=== PATIENT | male | born 1995 | race African-American/Black ===

== ENCOUNTER 2023-02-06 11:34 | Outpatient (CLI) | payer MEDICAID, SELFPAY | END 2023-02-06 11:35 | disposition home or self-care (01) | PROVIDERS: PCP Internal Medicine; Visit Provider Internal Medicine | DX: R20.2 Paresthesia of skin (principal) | CPT/HCPCS: 80053; 84443 ==

== ENCOUNTER 2023-02-14 22:40 | Emergency (ER) | payer MEDICAID, SELFPAY ==
[2023-02-14 22:48] VITALS: BP 135/80; PULSE 74; TEMP 36.4; O2SAT 100; BMI 22.5
--- NOTE | 2023-02-15 00:18 | ED_ITS ---
HPI - General Adult General Time Seen by Provider: 00:18 Date Seen: 02/15/23 Chief complaint: Unspecified Complaint, Adult Stated complaint: Feet are numb and hands are tingling Time Seen by Provider: 02/14/23 23:56 Source: patient and old records reviewed Mode of arrival: ambulatory Limitations: no limitations History of Present Illness HPI narrative: 27-year-old male who comes in today with 4 5 weeks of tingling in his hands and feet. He says the feet feel numb and that is sometimes difficult to walk because he feels like his legs do not work very well. Also notes tingling in his fingers with some pain in his shoulders. Pain in the low back and says from the waist down he feels ?tingling.No bowel or bladder incontinence. Says the top of his mouth feels numb as well. No difficulty swallowing or breathing. Previously seen in clinic for this and was given ?anti inflammatory? with no improvement. Related Data Previous Rx's Medication Instructions Recorded naproxen 500 mg tablet (Naprosyn) 500 mg PO BID Inflamation #30 tabs 02/08/23 Allergies Allergy/AdvReac Type Severity Reaction Status Date / Time No Known Drug Allergies Allergy Verified 02/06/23 11:23 [facility] Medical History (Updated 02/15/23 @ 01:18 by Conrado Trujillo MD) Tingling ?R20.2 - Paresthesia of skin (ICD-10) Social History Smoking Status: Current every day smoker Do you use any of these nicotine containing products: Vaping Products How often do you have a drink containing alcohol: 2-3 times a week AUDIT-C Alcohol total score: 3 Non-prescribed substance use: marijuana (any form) Little interest or pleasure in doing things: several days Feeling down, depressed, or hopeless: several days Exam Narrative: Exam Narrative: General: well nourished , NAD Head: Atraumatic and normocephalic ENT: External ears and external nose are normal Eyes: Conjunctiva clear, pupils are equal reactive, external ocular motions are intact Neck: Full spontaneous range of motion of the neck Lungs: No respiratory distress Musculoskeletal: No tenderness or deformity Neurologic: No gross focal neurologic deficits. Strength with ankle flexion extension, knee flexion extension, hip flexion extension intact. Patient able to heel-walk and toe-walk without difficulty. Gait is normal. Skin: No rashes Psych: Mood and affect are appropriate Const: Vital Signs, click to edit/add: Vital Signs - 24 hr 02/14/23 22:48 Temperature 97.5 F L Pulse Rate [Pulse Oximeter] 74 Blood Pressure [Ri ght Upper Arm] 135/80 Pulse Oximetry 100 Oxygen Delivery Me thod Room Air Course Course Hospital Course: Patient seen and examined, prior records reviewed. Patient presents with bilateral lower extremity numbness, mostly in the feet but now coming up the legs, as well as some numbness in the hands and aching the shoulders. On exam here, no weakness on exam, gait is steady, able to heel and toe walk. Labs ordered. If these are reassuring, patient should follow-up neurology for further evaluation. Reevaluation(s) Reevaluation #1: Labs independently interpreted by me are reassuring including normal electrolytes in negative CRP. Patient is stable for discharge with continued outpatient follow-up. Will refer to Neurology for further evaluation as well. Time: 01:15 Vital Signs Vital signs: Initial Vital Signs Temperature 97.5 F L 02/14/23 22:48 Temperature Source Temporal Artery Scan 02/14/23 22:48 Pulse Rate 74 02/14/23 22:48 Blood Pressure 135/80 02/14/23 22:48 Blood Pressure Mean 98 02/14/23 22:48 Blood Pressure Position Sitting 02/14/23 22:48 Pulse Oximetry 100 02/14/23 22:48 Oxygen Delivery Method Room Air 02/14/23 22:48 Vital Signs Temperature 97.5 F L 02/14/23 22:48 Pulse Rate 74 02/14/23 22:48 Blood Pressure 135/80 02/14/23 22:48 Pulse Oximetry 100 02/14/23 22:48 Oxygen Delivery Method Room Air 02/14/23 22:48 Temperature 97.5 F L 02/14/23 22:48 Pulse Rate 74 02/14/23 22:48 Blood Pressure 135/80 02/14/23 22:48 Pulse Oximetry 100 02/14/23 22:48 Oxygen Delivery Method Room Air 02/14/23 22:48 Medical Decision Making Lab Data Labs: Lab Results 02/15/23 Range/Units 00:30 Sodium 139 (135-149) mmol/L Potassium 4.3 (3.6-5.1) mmol/L Chloride 105 (96-114) mmol/L Carbon Dioxide 28 (20-32) mmol/L BUN 14 (5-24) mg/dL Creatinine 1.1 (0.5-1.5) mg/dL Estimated Creat Clear 117.52 Estimated GFR 95 ml/min Glucose 94 (60-115) mg/dL Calcium 9.0 (8.4-10.6) mg/dL Magnesium 2.0 (1.5-2.6) mg/dL C-Reactive Protein < 0.5 L (0.5-1.0) mg/dL Discharge Plan Discharge Clinical Impression: Paresthesia Patient Disposition: Home, Self-Care Condition: Stable Instructions: Paresthesia (ED) Additional Instructions: Contact Neurology for follow-up. [phone][facility] or [facility] would be options. Follow-up with your primary care clinic next week. Activity Level: No Restrictions Prescriptions: No Action naproxen [Naprosyn] 500 mg tablet 500 mg PO BID Qty: 30 0RF Follow Up/Referrals: Dick Contreras MD [Primary Care Provider] - Stand Alone Forms: [facility] Info Instructions
[2023-02-15 00:50] LABS: Chloride* 105 mmol/L (96-114); Potassium* 4.3 mmol/L (3.6-5.1); Sodium* 139 mmol/L (135-149)
[2023-02-15 00:53] LABS: Carbon Dioxide* 28 mmol/L (20-32); Creatinine* 1.1 mg/dL (0.5-1.5); Est. Creatinine Clearance* 117.52; Estimated Glomerular Filt Rate 95 ml/min
[2023-02-15 00:54] LABS: Blood Urea Nitrogen* 14 mg/dL (5-24); Glucose* 94 mg/dL (60-115)
[2023-02-15 01:00] LABS: C Reactive Protein* < 0.5 mg/dL (0.5-1.0)
[2023-02-15 01:30] VITALS: BP 136/62; PULSE 70; RESP 16; TEMP 36.7; O2SAT 100
== END 2023-02-15 01:35 | disposition home or self-care (01) ==
PROVIDERS: Emergency Provider Family Medicine; PCP Internal Medicine
DX: R20.2 Paresthesia of skin (principal)
CPT/HCPCS: 36415; 80048; 83735; 86140; 99283; 99284